=== PATIENT | male | born 1940 | race Caucasian/White ===

== ENCOUNTER 2019-01-03 12:37 | Outpatient (CLI) | payer MEDICARE | END 2019-01-03 23:59 | disposition home or self-care (01) | LOC: CFH 12:37 | PROVIDERS: ATTEND Internal Medicine Critical Care Medicine | DX: I51.7 Cardiomegaly (principal); K76.0 Fatty (change of) liver, not elsewhere classified; K80.20 Calculus of gallbladder without cholecystitis without obstruction; N28.1 Cyst of kidney, acquired; I70.0 Atherosclerosis of aorta; I25.10 Atherosclerotic heart disease of native coronary artery without angina pectoris; K43.9 Ventral hernia without obstruction or gangrene; R59.0 Localized enlarged lymph nodes | CPT/HCPCS: 70490; 71250 ==

== ENCOUNTER 2019-04-23 02:50 | Inpatient (IN) | payer MEDICARE ==
[~2019-04-23] VITALS: Ht 167.6 cm; Wt 103.1 kg
[2019-04-24 12:29] VITALS: BP 130/74
== END 2019-04-24 14:34 | disposition home or self-care (01) | DRG 282 ==
LOC: ED 04:58 → EDIP 05:00 → 5SO 05:24 → DCLOUNGE 04-24 14:19
PROVIDERS: ADMIT Internal Medicine; ATTEND Internal Medicine
DX: I21.4 Non-ST elevation (NSTEMI) myocardial infarction (principal); I44.1 Atrioventricular block, second degree; I25.10 Atherosclerotic heart disease of native coronary artery without angina pectoris; E78.5 Hyperlipidemia, unspecified; I11.0 Hypertensive heart disease with heart failure; I48.91 Unspecified atrial fibrillation; I50.9 Heart failure, unspecified; N40.0 Benign prostatic hyperplasia without lower urinary tract symptoms; M19.012 Primary osteoarthritis, left shoulder; Z79.01 Long term (current) use of anticoagulants; I25.2 Old myocardial infarction
CPT/HCPCS: 36415; 71045; 71275; 80048; 80053; 83880; 84484; 85025; 93005; 96374; 96375; G0378; J2405; Q9967; J2270